=== PATIENT | female | born 1965 | race Caucasian/White ===

== ENCOUNTER 2016-08-06 21:04 | Emergency (ER) | payer OTHER ==
--- NOTE | 2016-08-06 21:08 | PDOC ---
History of Present Illness - General History Source: Patient Exam Limitations: No Limitations - History of Present Illness Initial Comments: 08/06/16 21:31 The patient is a 51 year old female with a significant past medical history of anemia and hyperthyroid, who presents to the emergency department today for further evaluation of a sore inside of her left nostril for four days. The patient states that on Friday her sore began to have associated edema and erythema and on Friday her symptoms worsened. The patient states that she used cold sore medication and did warm compresses to the affected area and symptoms improved moderately. However, symptoms came back and worsen today. She notes that she has an appointment tomorrow with her ENT but was in too much pain to wait. PAST MEDICAL HISTORY: Anemia, hyperthyroidism PAST SURGICAL HISTORY: No significant history reported FAMILY HISTORY: No pertinent history reported SOCIAL HISTORY: Nurse at [employer] MEDICATIONS: Reviewed ALLERGIES: NKDA <Mendel Crain - Last Filed: 08/06/16 21:31> - General History Source: Patient Exam Limitations: No Limitations - History of Present Illness Initial Comments: 08/06/16 22:13 A portion of this note was documented by scribe services under my direction. I have reviewed the details of the note, within reason, and agree with the documentation. The case summary and management plan written by me. 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 Patient had some low-grade fevers and chills and called her ENT and has an appointment for the morning to follow-up with ENT. Patient had a white count that was normal Patient was given a gram of vancomycin to cover her for MRSA as she does work in healthcare field. Patient sent out on prescription for Bactrim and will follow-up with her ENT in the morning. <Refugio Zacarias I - Last Filed: 08/06/16 22:19> - General Chief Complaint: Pain, Acute Stated Complaint: SORE INSIDE LEFT NOSTRIL Time Seen by Provider: 08/06/16 21:08 Past History <Mendel Crain - Last Filed: 08/06/16 21:31> - Past Medical History Anemia: Yes Asthma: No Cancer: No Cardiac Disorders: No CVA: No COPD: No CHF: No Dementia: No Diabetes: No GI Disorders: No Disorders: No HTN: No Hypercholesterolemia: No Liver Disease: No Seizures: No Thyroid Disease: Yes (hypothyroidism) - Surgical History Abdominal Surgery: No Appendectomy: No Cardiac Surgery: No Cholecystectomy: No Lung Surgery: No Neurologic Surgery: No Orthopedic Surgery: No - Psycho/Social/Smoking Cessation Hx Smoking History: Never smoked Hx Alcohol Use: Yes (socially) Drug/Substance Use Hx: No Substance Use Type: None Hx Substance Use Treatment: No <Refugio Zacarias I - Last Filed: 08/06/16 22:19> - Past Medical History Allergies/Adverse Reactions: Allergies Allergy/AdvReac Type Severity Reaction Status Date / Time No Known Allergies Allergy Verified 08/06/16 21:06 Home Medications: Ambulatory Orders Levothyroxine [Synthroid -] 0.125 mcg PO DAILY 08/20/13 Sulfamethoxazole/Trimethoprim [Bactrim DS -] 1 tab PO BID #14 tablet 08/06/16 Review of Systems - Review of Systems Able to Perform ROS?: Yes Comments:: General: No fevers or chills, no weakness, no weight loss HEENT: (+) Left inner nasal sore, erythema, and edema. No change in vision. No sore throat, No ear pain CardioVascular: No chest pain or shortness of breath Respiratory:No cough, or wheezing. Gastrointestinal: no nausea, vomiting, diarrhea or constipation, No rectal bleeding Genitourinary: No dysuria, hematuria, or frequency Musculoskeletal: No joint or muscle pain or swelling Neurologic: No headache, vertigo, dizziness or loss of consciousness Psychiatric: nor depression Skin: No rashes or easy bruising Endocrine: no increased thirst or abnormal weight change Allergic: no skin or latex allergy All other systems reviewed and normal <Mendel Crain - Last Filed: 08/06/16 21:31> *Physical Exam - Vital Signs Last Vital Signs Temp Pulse Resp BP Pulse Ox 100.1 F H 100 H 16 147/104 97 08/06/16 21:08 08/06/16 21:08 08/06/16 21:08 08/06/16 21:08 08/06/16 21:08 - Physical Exam Comments: General: Well-nourished well-developed individual, no acute distress HEENT: (+) Throat: Normal, tonsils normal, no erythema or exudate. Cellulitis bilateral nose from the bridge down (L>R), No discharge. Increased warmth to tip of nose. Mild extension of erythema to cheeks bilaterally. Neck: Supple, no meningeal signs, no lymphadenopathy Eyes::Pupils equal reactive and round, extraocular motion intact Chest: Nontender to palpation Cardiac: S1-S2 normal, regular rate and rhythm, no murmurs rubs or gallops Respiratory: Lungs clear to auscultation bilateral Abdomen: Soft, nondistended, normal bowel sounds, nontender to palpation diffusely Extremities: Warm, dry, no cyanosis, clubbing, or edema Skin: No rashes Neuro: Alert and oriented x3, nonfocal exam, grossly intact, normal gait Psych: Normal mood and affect <Mendel Crain - Last Filed: 08/06/16 21:31> ED Treatment Course - LABORATORY CBC & Chemistry Diagram: 08/06/16 21:45 <Refugio Zacarias I - Last Filed: 08/06/16 22:19> *DC/Admit/Observation/Transfer - Attestations Scribe Attestion: Documentation prepared by Mendel Crain, acting as medical sales specialist for Refugio Zacarias MD. <Mendel Crain - Last Filed: 08/06/16 21:31> - Discharge Dispostion Admit: No <Refugio Zacarias I - Last Filed: 08/06/16 22:19> Diagnosis at time of Disposition: Nose cellulitis - Discharge Dispostion Disposition: HOME Condition at time of disposition: Stable - Prescriptions Prescriptions: Sulfamethoxazole/Trimethoprim [Bactrim DS -] 1 tab PO BID #14 tablet - Referrals Referrals: Sisi Coyne [Primary Care Provider] - - Patient Instructions Additional Instructions: Hot soaks to the area 3-4 times a day. Take Bactrim 1 tablet twice a day for the next 7 days. Make sure you keep your appointment with her ENT in the morning. Return to the emergency department immediately with ANY new, persistent or worsening symptoms. Continue any medications as previously prescribed by your physician. You should follow up with your primary doctor as soon as possible regarding today's emergency department visit. . Please make sure your doctor reviews the results of your emergency evaluation. Thank you for coming to the Emergency Department today for your care. It was a pleasure to see you today. Please note that your evaluation is INCOMPLETE until you follow-up with your doctor.
[2016-08-06 21:12] VITALS: BP 147/104; PULSE 100; TEMP 100.1; BMI 36.6
[2016-08-06] MEDS ORDERED: VANCOMYCIN 1,000 MG in DEXTROSE 5%-WATER - 250 ML IVPB STA (21:17)
[2016-08-06] MEDS ORDERED: ACETAMINOPHEN 500 MG TABLET (FP) PO ONE (21:22)
[2016-08-06] MEDS ORDERED: VANCOMYCIN 1,000 MG VIAL (RESTRICTED TO ID ONLY) ONE (21:47)
[2016-08-06] MEDS ORDERED: ACETAMINOPHEN 325 MG TABLET (FP) ONE (21:47)
[2016-08-06 22:03] LABS: BASOPHIL 0.2 % (0-2.0); EOSINOPHIL 0.4 % (0-4.5); MCH 20.7 pg (25.7-33.7); MCHC 30.9 g/dl (32.0-36.0); MEAN CELL VOLUME 66.9 fl (80-96); MEAN PLT VOLUME 8.1 fl (7.5-11.1); NEUTROPHILS 81.4 % (42.8-82.8); PLATELET COUNT 317 K/MM3 (134-434); RDW 17.6 % (11.6-15.6); WHITE BLOOD COUNT 10.4 K/mm3 (4.0-10.8)
[2016-08-06 22:35] LABS: PLATELET ESTIMATE ADEQUATE (NORMAL)
[2016-08-06 22:36] LABS: ANISOCYTOSIS 1+; HYPOCHROMIA 2+; MICROCYTOSIS 2+
== END 2016-08-06 23:01 | disposition home or self-care (01) ==
LOC: FER 21:04
PROC: 3E03329 Introduction of Other Anti-infective into Peripheral Vein, Percutaneous Approach (ICD-10-PCS; principal; 2016-08-06)
PROC: 3E033GC Introduction of Other Therapeutic Substance into Peripheral Vein, Percutaneous Approach (ICD-10-PCS; 2016-08-06)
DX: J34.0 Abscess, furuncle and carbuncle of nose (principal); E03.9 Hypothyroidism, unspecified
CPT/HCPCS: 36415; 85025; 87040; 99281-25

== ENCOUNTER 2019-03-19 06:38 | Day surgery (SDC) | payer OTHER ==
[2019-03-19] MEDS ORDERED: FERRIC CARBOXYMALTOSE 750 MG in SODIUM CHLORIDE 250 ML IVPB ONE (09:30)
[2019-03-19 13:05] VITALS: BP 155/94; PULSE 70
== END 2019-03-19 11:30 | disposition home or self-care (01) ==
LOC: JONCCHEMO 06:38 → J7W 08:47 → JONCCHEMO 11:30
PROVIDERS: ATTEND Internal Medicine Hematology & Oncology
PROC: 3E033GC Introduction of Other Therapeutic Substance into Peripheral Vein, Percutaneous Approach (ICD-10-PCS; principal; 2019-03-19)
DX: D50.9 Iron deficiency anemia, unspecified (principal)
CPT/HCPCS: 96365; J1439

== ENCOUNTER 2019-03-26 06:15 | Day surgery (SDC) | payer OTHER ==
[2019-03-26] MEDS: FERRIC CARBOXYMALTOSE 750 MG in SODIUM CHLORIDE 250 ML IVPB ONE ×2 (07:30→12:07)
[2019-03-26 12:05] VITALS: BP 158/95; PULSE 79; TEMP 98.7
== END 2019-03-26 08:30 | disposition home or self-care (01) ==
LOC: JONCNONCHE 06:15 → J7W 07:12 → JONCNONCHE 08:30
PROVIDERS: ATTEND Internal Medicine Hematology & Oncology
PROC: 3E033GC Introduction of Other Therapeutic Substance into Peripheral Vein, Percutaneous Approach (ICD-10-PCS; principal; 2019-03-26)
DX: D50.9 Iron deficiency anemia, unspecified (principal)
CPT/HCPCS: 96365; J1439

== ENCOUNTER 2021-03-27 09:21 | Inpatient (IN) | payer BC ==
[2021-03-27] MEDS ORDERED: SODIUM CHLORIDE 0.9% 500 ML INFUS.BAG IV ONE (10:29)
[2021-03-27] MEDS ORDERED: METOCLOPRAMIDE HCL INJECTION 10 MG/2 ML VIAL IVPUSH ONE (10:29)
[2021-03-27] MEDS ORDERED: ACETAMINOPHEN 1000 MG/100 ML BAG IVPB ONE (10:29)
[2021-03-27] MEDS ORDERED: ACETAMINOPHEN INJECTION 100 ML IVPB ONE (10:40)
[2021-03-27] MEDS ORDERED: METOCLOPRAMIDE HCL INJECTION 10 MG/2 ML VIAL ONE (10:40)
[2021-03-27] MEDS ORDERED: LACTATED RINGERS SOLUTION 1,000 ML/1,000 ML INFUS.BAG IV SCH (11:00)
[2021-03-27 11:38] LABS: BASO % 0.2 % (0-2.0); HEMATOCRIT 52.4 % (32.4-45.2); HEMOGLOBIN 17.4 GM/dL (10.7-15.3); LYMPH % 8.7 % (8-40); MCH 28.9 pg (25.7-33.7); MCHC 33.3 g/dl (32.0-36.0); MEAN CELL VOLUME 86.7 fl (80-96); MEAN PLT VOLUME 9.1 fl (7.5-11.1); MONO % 7.5 % (3.8-10.2); NEUT % 83.6 % (42.8-82.8); PLATELET COUNT 184 10^3/uL (134-434); RBC 6.04 M/mm3 (3.60-5.2); RDW 12.4 % (11.6-15.6); WHITE BLOOD COUNT 9.9 K/mm3 (4.0-10.0)
[2021-03-27 12:07] LABS: CALCIUM 8.4 mg/dL (8.5-10.1)
[2021-03-27 12:08] LABS: ALBUMIN 3.1 g/dl (3.4-5.0); BLOOD UREA NITROGEN 27.9 mg/dL (7-18)
[2021-03-27 12:13] LABS: BILIRUBIN,TOTAL 0.7 mg/dL (0.2-1); TOT PROT 6.5 g/dl (6.4-8.2)
[2021-03-27 13:05] LABS: LACTIC ACID 4.7 mmol/L (0.4-2.0)
[2021-03-27] MEDS ORDERED: SODIUM CHLORIDE 1,000 ML IV SCH ×2 (14:00→15:38)
[2021-03-27] MEDS ORDERED: KETOROLAC TROMETHAMINE 15 MG/ML VIAL IVPUSH ONE (14:50)
[2021-03-27] MEDS ORDERED: KETOROLAC TROMETHAMINE 15 MG/ML VIAL ONE (14:50)
[2021-03-27] MEDS ORDERED: ACETAMINOPHEN 325 MG TABLET (FP) PO PRN (15:35)
[2021-03-27 15:43] LABS: EPI CELLS 22 /uL (0-25.1); HYALINE CASTS 13 /uL (0-3.1); PH,URINE 5.5 (5.0-8.0); URINE APPEARANCE CLEAR; URINE BACTERIA 316 /uL (0-1359); URINE BILIRUBIN 1+ (NEGATIVE); URINE COLOR DK YELLOW; URINE GLUCOSE (UA) 2+ (NEGATIVE); URINE KETONE 1+ (NEGATIVE); URINE LEUK ESTERASE NEGATIVE (NEGATIVE); URINE NITRITE NEGATIVE (NEGATIVE); URINE PROTEIN 1+ (NEGATIVE); URINE RBC 4 /uL (0-23.9); URINE WBC 16 /uL (0-25.8)
[2021-03-27] MEDS ORDERED: COLCHICINE 0.6 MG CAPSULE PO SCH (17:15)
[2021-03-27] MEDS ORDERED: ACETAMINOPHEN 325 MG TABLET (FP) ONE (18:09)
[2021-03-27] MEDS: IBUPROFEN 400 MG TABLET (FP) PO PRN (20:54)
[2021-03-27] MEDS ORDERED: ENOXAPARIN NA (PORCINE) 30 MG/0.3 ML DISP.SYRIN SQ SCH (22:00)
[2021-03-27] MEDS ORDERED: FAMOTIDINE 20 MG TABLET PO SCH (22:00)
[2021-03-27 23:18] VITALS: BMI 38.7
[2021-03-28] MEDS ORDERED: ASPIRIN 81 MG CHEWABLE TABLETS PO ONE (02:12)
[2021-03-28] MEDS ORDERED: ASPIRIN 325 MG TABLET ONE (02:26)
[2021-03-28] MEDS: IBUPROFEN 400 MG TABLET (FP) PO PRN (02:49)
[2021-03-28 03:16] VITALS: BP 121/60; PULSE 114; TEMP 96.7
[2021-03-28] MEDS ORDERED: ATORVASTATIN CA 80 MG TABLET (FP) PO ONE (04:25)
[2021-03-28] MEDS ORDERED: HEPARIN NA (PORCINE) 5,000 UNITS/ML 1ML VIAL IVPUSH PRN ×2 (04:25)
[2021-03-28] MEDS ORDERED: HEPARIN - 25,000 UNIT in SODIUM CHLORIDE 495 ML IV SCH (04:30)
[2021-03-28] MEDS ORDERED: METOPROLOL TARTRATE 25 MG TABLET (FP) PO ONE (05:34)
[2021-03-28] MEDS ORDERED: NITROGLYCERIN SUBLINGUAL 1/150 0.4 MG TAB SL ONE (05:39)
[2021-03-28] MEDS ORDERED: NITROGLYCERIN 25MG/D5W 250ML 25 MG/250 ML ML IVPB ONE (06:44)
[2021-03-28] MEDS ORDERED: LEVOTHYROXINE NA 125 MCG TABLET (FP) PO SCH (07:00)
[2021-03-28] MEDS ORDERED: NITROGLYCERIN 25MG/D5W 250ML 25 MG/250 ML ML IVPB SCH (07:30)
[2021-03-28] MEDS ORDERED: MUPIROCIN 2% TOPICAL OINTMENT FOR DECOLONIZATION NS SCH (10:00)
[2021-03-28] MEDS ORDERED: CHLORHEXIDINE GLUCONATE 4% CLEANSER FOR DECOLONIZATION TP SCH (22:00)
== END 2021-03-28 07:58 | disposition short-term general hospital (02) | DRG 177 ==
LOC: JER 09:21 → JERBED 12:26 → J4W 20:30 → JICU 03-28 05:03
PROVIDERS: ADMIT Internal Medicine; ATTEND Internal Medicine
DX: U07.1 COVID-19 (principal); J12.82 Pneumonia due to coronavirus disease 2019; I21.3 ST elevation (STEMI) myocardial infarction of unspecified site; E87.2 Acidosis; E87.1 Hypo-osmolality and hyponatremia; M62.82 Rhabdomyolysis; E03.9 Hypothyroidism, unspecified; E86.0 Dehydration; R19.7 Diarrhea, unspecified; R94.5 Abnormal results of liver function studies; E66.9 Obesity, unspecified; Z68.38 Body mass index [BMI] 38.0-38.9, adult; D64.9 Anemia, unspecified; E87.5 Hyperkalemia; M60.9 Myositis, unspecified
CPT/HCPCS: 36415; 71045-TC-FY; 80053; 81003; 82550; 82553; 83605; 83690; 84484; 85025; 86140; 87086; 87804; 87807; 93005; 93010; 99285-25; J0131; J1644